=== PATIENT | male | born 1945 | race Hispanic/Latino ===

== ENCOUNTER 2018-04-28 06:04 | Day surgery (SDC) | payer MEDICARE ==
[2018-04-28] MEDS ORDERED: Iohexol 240 (50 ml) ONE (08:02)
[2018-04-28] MEDS ORDERED: cefTRIAXone (Rocephin) 1 gm Inj ONE (08:02)
[2018-04-28] MEDS ORDERED: Propofol 10 mg/ml Inj (20 ML) ONE (08:30)
[2018-04-28] MEDS ORDERED: Etomidate 20 mg/10ml Inj IV ONE (08:41)
[2018-04-28] MEDS ORDERED: ePHEDrine 50 mg/ml Inj ONE (08:52)
[2018-04-28] MEDS ORDERED: Sevoflurane - Inhalation Anesthetic Liq (250 ml) ONE (09:08)
[2018-04-28] MEDS ORDERED: Phenylephrine 10 mg/ml Inj ONE (09:11)
[2018-04-28] MEDS ORDERED: HYDROmorphone 0.5 mg/0.5 ml ISec IVP PRN (09:40)
[2018-04-28] MEDS ORDERED: Lactated Ringer's 1,000 ML IV SCH (09:45)
[2018-04-28] MEDS ORDERED: HYDROmorphone 0.5 mg/0.5 ml ISec ONE ×2 (10:09→10:12)
[2018-04-28] MEDS ORDERED: Oxycodone/Acetaminophen 5/325 mg Tab PO PRN (10:15)
--- NOTE | 2018-04-28 10:19 | OP ---
PROCEDURE DATE: 04/28/2018 PREOPERATIVE DIAGNOSES: Bladder cancer history, prostate cancer history, urethral stricture. POSTOPERATIVE DIAGNOSES: Bladder cancer history, prostate cancer history, urethral stricture. PROCEDURE: A cystoscopy; bilateral retrograde pyelograms; transurethral resection of bladder tumor, large; transurethral resection of bladder neck; insertion of Menon catheter. ATTENDING PHYSICIAN: Fabrice Conklin MD. ANESTHESIA: General. SPECIMENS: Bladder tumor bladder neck chips were sent to pathology as specimen. DRAIN: A 22-Gibraltarian 3-way Menon catheter. COMPLICATIONS: There were none. OPERATIVE FINDINGS: After informed consent was obtained, the patient was taken to the operating room, placed on the operating table. Anesthesia was administered. The patient was then placed in the dorsal lithotomy position and prepped and draped in usual sterile fashion. First, a 21-Gibraltarian cystoscope was placed in the patient's urethra and advanced proximally under direct vision. In the prostatic urethra, there was noted to be a ragged stricture from prior radiation. There was a mild bladder neck contracture noted as well with scar tissue. I was able to manipulate the scope through this and into the bladder. The bladder was then drained and then a full survey inspection of bladder was performed using both 30 and 70-degree lenses. The bladder was heavily trabeculated grade II to III. There was a papillary tumor noted at the dome to 1 o'clock position. There was a prior resection near this site with ragged healing tissue. In total, the area of tumor and prior resection encompassed approximately 5 cm x 5 cm from the 12 o'clock position to approximately 2 o'clock position extending towards the bladder neck region. There were no other active tumors noted. There were multiple healed resection sites. The trigone was elevated given the trabeculation; however, I was able to identify both ureteral orifices. There was no tumor surrounding the orifices. At this point, a 5-Gibraltarian Pollack catheter was introduced through the cystoscope and guided into first the left ureteral orifice. A left retrograde pyelogram was then performed by instilling contrast through the Pollack catheter into the left ureter during real-time fluoroscopy. The left retrograde pyelogram appeared grossly within normal limits. There was no evidence of filling defect or obstruction noted. There was some possible narrowing of the distal ureter. However, there was no filling defect noted inside the ureter itself. At this point, the catheter was guided into the right ureteral orifice and a right retrograde pyelogram was performed. Given the small nature of the right orifice, a sensor wire was used in order to cannulate the orifice. When the catheter was inside the orifice, the wire was then removed. The right ureter appeared of normal caliber, possibly mildly dilated throughout its length. However, there were no filling defects noted. In the renal pelvis, there were multiple rounds mobile filling defects noted. These were not seen on plain fluoroscopy and appeared to be likely uric acid calculi. There was no hydronephrosis and the calyces were sharp. On delayed views, contrast was noted to be exiting from the right kidney down the ureter and into the bladder without any evidence of obstruction. At this point, the cystoscope was removed and a 26-Gibraltarian resectoscope with a visualizing obturator was then passed into the bladder. Using a loop, the active tumor was then resected down into the muscular layer. As the tumor extended into the area of prior resection that area was re-resected as well. After the entire area of tumor was resected, any bleeding points encountered were controlled using electrocautery. After all the visible tumor had been resected, attention was turned towards the bladder neck contracture. There was ragged tissue at the bladder neck extending into the prostatic fossa likely from prior brachytherapy. Bladder neck was then resected using a cutting loop until it was widely opened. Any bleeding points encountered were then controlled using electrocautery. After the bladder neck had been opened, a rollerball electrode was obtained. The bladder was copiously irrigated and the chips as well as tumor fragments were removed and sent to pathology. Rollerball electrode was then used to fulgurate the base of the prior resected tumor and to control any bleeding in the bladder neck region. A final inspection was then made. There was complete hemostasis. All the chips had been removed from the bladder. There was extrusion of a radioactive seed from patient's prior brachytherapy, which was able to also be irrigated out of the bladder and sent with the specimen. At this point, the bladder was then drained. The resectoscope was removed and a 22-Gibraltarian 3-way Menon catheter was passed and placed to continuous bladder irrigation. The patient tolerated the procedure well. He received IV antibiotics prior to start of the procedure. He was returned to the supine position and taken to the recovery room awake and in stable condition. Fabrice Conklin MD [facility] # [id number]
--- NOTE | 2018-04-28 12:33 | RAD ---
Date of service: 04/28/2018 HISTORY: missing tooth COMPARISON: 04/11/2018 FINDINGS: LUNGS: No active pulmonary disease. PLEURA: No significant pleural effusion identified, no pneumothorax apparent. CARDIOVASCULAR: Normal. OSSEOUS STRUCTURES: No significant abnormalities. VISUALIZED UPPER ABDOMEN: Normal. OTHER FINDINGS: None. IMPRESSION: No evidence of a tooth within the airway
--- NOTE | 2018-04-28 14:39 | RAD ---
Date of service: 04/28/2018 PROCEDURE: Retrograde pyelogram HISTORY: R/O OBSTRUCTION COMPARISON: TECHNIQUE: 67.7 sec of fluoro time. Cumulative dose 24.95 mGy. Twenty-two images FINDINGS: Multiple filling defects are seen in the right renal pelvis consistent with stones. IMPRESSION: As above
--- NOTE | 2018-04-28 16:44 | CP.PCM.HP ---
History of Present Illness - History of Present Illness History of Present Illness: History and physical for Dr. Jordon Oliveira HPI: patient is a 72 yr old male with PMH HTN, DM, COPD and bladder cancer who presents s/p cystoscopy and biopsy with Dr. Conklin. Patient c/o mild suprapubic tenderness, mild headache and has grossly blood tinged urine in heredia bag at the time of interview. Patient states that he has had bladder cancer for approximately 14 years and has been followed during that time with Dr. Conklin. He otherwise denies CP, SOB, upper abdominal pain, extremity pain. PMH: PSH: Cystoscopy with biopsy, Prostate seed placement, R inguinal hernia repair Social: denies drugs etoh and tobacco use All: Moxifloxacin Family Hx: Father (VT), mother (CHF pulmonary failure), siblinga healthy Home medications: Metformin/sitagliptin, Albuterol, lisinopril, singulair, omeprazole, amlodipine, silodosin Present on Admission - Present on Admission Any Indicators Present on Admission: Yes Urinary Catheter: Yes Review of Systems - Review of Systems All systems: reviewed and no additional remarkable complaints except (as per HPI) Past Patient History - CARDIAC Hx Pacemaker: No - NEUROLOGICAL Hx Paralysis: No - HEMATOLOGICAL/ONCOLOGICAL Hx Blood Transfusions: No Hx Blood Transfusion Reaction: No - MUSCULOSKELETAL/RHEUMATOLOGICAL Hx Musculoskeletal Disorders: Yes - PSYCHIATRIC Hx Emotional Abuse: No Hx Physical Abuse: No Hx Substance Use: No - SURGICAL HISTORY Hx Surgeries: Yes - ANESTHESIA Hx Anesthesia Reactions: No Hx Malignant Hyperthermia: No Meds Allergies/Adverse Reactions: Allergies Allergy/AdvReac Type Severity Reaction Status Date / Time moxifloxacin HCl Allergy Intermediate STOMACH Verified 06/13/16 10:14 [From Avelox] PAINS Physical Exam - Constitutional Appears: Well, Non-toxic, No Acute Distress - Head Exam Head Exam: ATRAUMATIC, NORMOCEPHALIC - Eye Exam Eye Exam: EOMI - ENT Exam ENT Exam: Mucous Membranes Moist Additional comments: lower anterior front right tooth missing, patient claims it was intact prior to procedure, several other missing teeth, dentition poor, no active bleeding no other oral trauma - Neck Exam Neck exam: Positive for: Full Rom - Respiratory Exam Respiratory Exam: NORMAL BREATHING PATTERN - Cardiovascular Exam Cardiovascular Exam: REGULAR RHYTHM - GI/Abdominal Exam GI & Abdominal Exam: Guarding, Soft, Tenderness. absent: Firm, Rebound, Rigid Additional comments: mild suprapubic tenderness with guarding - Extremities Exam Extremities exam: Positive for: pedal pulses present. Negative for: calf tenderness, pedal edema - Neurological Exam Neurological exam: Alert, CN II-XII Intact, Oriented x3 - Psychiatric Exam Psychiatric exam: Normal Affect, Normal Mood - Skin Skin Exam: Dry, Intact, Normal Color, Warm Results - Vital Signs Recent Vital Signs: Last Vital Signs Temp 97.5 F L 04/28/18 11:35 Pulse 85 04/28/18 11:35 Resp 18 04/28/18 11:35 BP 120/60 04/28/18 11:35 Pulse Ox 98 04/28/18 11:35 - Labs Labs: Laboratory Results - last 24 hr 04/28/18 06:36 POC Glucose (mg/dL) 125 H Assessment & Plan - Assessment and Plan (Free Text) Assessment: 72 yr old male s/p cystoscopy and biopsy with dental injury Plan: Dental pain; - patient indicates that he has an appointment with his dentist next week - no bleeding at site, no other oral trauma - tylenol PRN for pain Suprapubic pain/ hematuria: - 2/2 cystoscopy and biopsy - will monitor UOP for hematuria improvement - tylenol for pain PRN HTN: - restart home lisinopril and amlodipine - will continue to monitor DM: - maintain euglycemia - ISS medium - glucose checks ACHS COPD: - restart home albuterol - restart home singulair - patient unsure of other home medications, to bring list - Pulmonology consulted, recs appreciated GERD: - protonix BID - monitor for GERD symptoms Patient seen and examined with Dr. Jordon Wren, PGY 1 - Date & Time Date: 04/28/18 Time: 15:25
[2018-04-28] MEDS: Insulin Reg-MEDIUM-Coverage SC SCH (22:43)
[2018-04-29] MEDS ORDERED: Albuterol-Ipratrop 3 mg / 0.5 (3 ml) UD IH STA (02:20)
[2018-04-29] MEDS ORDERED: Pantoprazole 40 mg EC Tab PO SCH (06:00)
[2018-04-29] MEDS: Insulin Reg-MEDIUM-Coverage SC SCH ×2 (06:59→12:48)
[2018-04-29 07:37] VITALS: BMI 27.6
[2018-04-29] MEDS ORDERED: Arformoterol 15 mcg/2 ml Inh Sol IH SCH (08:00)
[2018-04-29] MEDS ORDERED: Budesonide 0.5 mg/2 ml Inhal Susp UD IH SCH (08:00)
--- NOTE | 2018-04-29 08:46 | CON ---
DATE: 04/29/2018 PULMONARY CONSULTATION REASON FOR THE PULMONARY CONSULTATION: Chronic obstructive pulmonary disease. REFERRING PHYSICIAN FOR THIS PULMONARY CONSULT: Fabrice Conklin MD. HISTORY OF PRESENT ILLNESS: history is obtained via extensive discussion with the nurse. I have also reviewed the chart at length, and discussed case with the patient at length. The patient is a 72-year-old male, with past medical history significant for bladder cancer, hypertension, chronic obstructive pulmonary disease, diabetes mellitus, who presented to [facility] for cystoscopy and biopsy (with Dr. Conklin). At home, apparently, the patient complained of suprapubic tenderness and had grossly blood-tinged urine. He was thus admitted for the above procedure. There is no history of shortness of breath at rest or dyspnea on exertion. The patient does have a chronic occasional cough with occasional sputum production - unchanged. There is no history of chest pain, coughing up of blood or chest pain - made worse with deep respirations. There is no history of temperatures, chills or infectious exposure. There is no history of night sweats, weight loss or appetite change prior to the above events. No history of leg or calf pains. No history of syncope or diaphoresis. No history of recent travel or trauma. REVIEW OF SYSTEMS: No history of nausea, vomiting or diarrhea. No new neurologic or musculoskeletal complaints. Rest of the review of systems is negative. ALLERGIES: TO AVELOX. SOCIAL HISTORY: Positive for tobacco. Negative for alcohol. FAMILY HISTORY: No inheritable diseases. HOME MEDICATIONS: Include Norvasc, Ambien, Rapaflo, omeprazole, Singulair, Nasonex, lisinopril, Xanax and albuterol HFA. PHYSICAL EXAMINATION: GENERAL: The patient appears comfortable this morning. He is not short of breath at rest. VITAL SIGNS: Temperature is 98.6, pulse is 84, respirations 18, blood pressure 127/80. Oxygen saturation on room air is 96%. HEENT: Normocephalic, atraumatic. No JVD. CARDIOVASCULAR: Positive S1, S2. No S3 gallop. LUNGS: Clear bilaterally. EXTREMITIES: No clubbing, cyanosis or edema. Calves are nontender to palpation. GI: Abdomen is soft, nontender and nondistended. Bowel sounds are positive. SKIN: No acute rash. NEUROLOGIC: Limited at the present time. PERTINENT LABORATORY DATA: Chest x-ray was done yesterday and reviewed. There is no active pulmonary disease noted. IMPRESSION: 1. Bladder cancer. 2. Status post cystoscopy and biopsy. 3. Chronic obstructive pulmonary disease. 4. Hypertension. PLAN: The patient presents to [facility] for cystoscopy and biopsy. Apparently, the patient did have suprapubic tenderness and grossly bloody urine at home. He was thus admitted for the above procedure. Again, I did discuss the case with the night nurse at length. I have also discussed the case with the patient at length. Other than a chronic occasional cough with occasional sputum, the patient offers no new pulmonary symptoms. I have also reviewed the chest x-ray. The chest x-ray shows no acute pulmonary disease. On physical exam, the patient's lungs are clear. In addition, the oxygen saturation on room air is 96%. The patient does have a long history of chronic obstructive pulmonary disease. I will start Brovana and Pulmicort nebulizer treatments this morning. Additional evaluation and treatment will be as per Dr. Conklin (Genitourinary). The patient does state to feeling better - since his hospital admission. Additional pulmonary intervention will be based on the clinical status of the patient. I will discuss the above with the attending physician. Thank you very much for this pulmonary consultation. Brian Gallego MD [facility]
[2018-04-29 10:45] VITALS: RESP 20; O2SAT 94
[2018-04-29 14:36] VITALS: BP 127/80; PULSE 92; TEMP 98.3
--- NOTE | 2018-04-29 15:43 | CP.PCM.PN ---
<LouieCachorrobetsy Hu - Last Filed: 04/29/18 15:38> Subjective - Date & Time of Evaluation Date of Evaluation: 04/29/18 Time of Evaluation: 15:38 - Subjective Subjective: Pt seen and examined at bedside. Pt presented with complaints of blood in his urine. Pt reports no new complaints at this time. Physical Exam: Cardio: RRR, no murmurs Pulm: lungs CTA BL GI: normal bowel sounds, no tenderness to palpation Pt medically cleared from an internal medicine standpoint. Thank you for letting us participate in the care of this pt. We will be signing off at this time. Objective - Vital Signs/Intake and Output Vital Signs (last 24 hours): Temp Pulse Resp BP Pulse Ox 98.3 F 92 H 20 127/80 94 L 04/29/18 14:00 04/29/18 14:00 04/29/18 14:00 04/29/18 14:00 04/29/18 14:00 Intake and Output: 04/29/18 04/29/18 06:59 18:59 Intake Total 360 Output Total 32583 1600 Balance -11851 -1600 - Medications Medications: Current Medications Amlodipine Besylate (Norvasc) 2.5 mg PO DAILY [facility] Last Admin: 04/29/18 10:08 Dose: 2.5 mg Arformoterol Tartrate (Brovana) 15 mcg [facility] [id number] [facility] Last Admin: 04/29/18 14:04 Dose: 15 mcg Budesonide (Pulmicort Respules) 0.5 mg [facility] [id number] [facility] Last Admin: 04/29/18 14:04 Dose: 0.5 mg Insulin Human Regular (Humulin R Med) 0 units SC [facility]; Protocol Last Admin: 04/29/18 12:48 Dose: Not Given Lisinopril (Zestril) 5 mg PO DAILY [facility] Last Admin: 04/29/18 10:07 Dose: 5 mg Montelukast Sodium (Singulair) 10 mg PO HS [facility] Last Admin: 04/28/18 21:15 Dose: 10 mg Oxycodone/Acetaminophen (Percocet 5/325 Mg Tab) 1 tab PO Q6H PRN PRN Reason: Pain, moderate (4-7) Stop: 05/01/18 10:16 Last Admin: 04/29/18 01:45 Dose: 1 tab Pantoprazole Sodium (Protonix Ec Tab) 40 mg PO 0600,1600 [facility] Last Admin: 04/29/18 05:27 Dose: 40 mg <Jordon Oliveira - Last Filed: 04/29/18 19:49> Objective - Vital Signs/Intake and Output Vital Signs (last 24 hours): Temp Pulse Resp BP Pulse Ox 98.3 F 92 H 20 127/80 94 L 04/29/18 14:00 04/29/18 14:00 04/29/18 14:00 04/29/18 14:00 04/29/18 14:00 Intake and Output: 04/29/18 04/30/18 18:59 06:59 Output Total 1600 Balance -1600 Attending/Attestation - Attestation I have personally seen and examined this patient.: Yes I have fully participated in the care of the patient.: Yes I have reviewed all pertinent clinical information, including history, physical exam and plan: Yes Notes (Text): medical clearance for discharge mild hematuria most likely attributed to cystoscopy will need outpt f/u with Urology
--- NOTE | 2018-04-30 08:46 | PN ---
DATE: 04/29/2018 POSTOPERATIVE PROGRESS NOTE SUBJECTIVE: The patient is status post cystoscopy with resection of bladder tumor and bladder neck resection. He was kept on extended recovery as he was not feeling well. He has multiple comorbid conditions. The patient was seen by Pulmonary. His status is stable with regards to his COPD. He is feeling better today with no abdominal pain. He has been afebrile. Temperature of 98.7, pulse 93, BP 124/67, respirations 20. Abdomen was benign. Menon catheter draining clear urine on slow CBI. IMPRESSION AND PLAN: , the patient is currently stable. We will discontinue the continuous bladder irrigation. The patient can be placed to leg bag and discharged home if okay with the hospitalist service. The patient will follow up in my office on morning for Menon catheter removal. Fabrice Conklin MD
== END 2018-04-29 18:06 | disposition home or self-care (01) ==
LOC: SDS 06:04 → 5RSO 16:07 → SDS 04-29 18:06
PROVIDERS: ATTEND Urology
DX: C67.9 Malignant neoplasm of bladder, unspecified (principal); N35.919 Unspecified urethral stricture, male, unspecified site; N32.0 Bladder-neck obstruction; E11.9 Type 2 diabetes mellitus without complications; I10 Essential (primary) hypertension; J44.9 Chronic obstructive pulmonary disease, unspecified; K21.9 Gastro-esophageal reflux disease without esophagitis; Z85.46 Personal history of malignant neoplasm of prostate; Z79.84 Long term (current) use of oral hypoglycemic drugs
CPT/HCPCS: 52240; 71045; 74420; 82948 ×2; 88307; 94640; J0696; J1170; J2001; J2370; J2405 ×2; J2704; J3010; J7120 ×2; Q9966

== ENCOUNTER 2018-07-25 08:58 | Outpatient (CLI) | payer MEDICARE | END 2018-07-25 08:59 | disposition home or self-care (01) | LOC: PAT 08:58 ==

== ENCOUNTER 2018-08-04 06:42 | Day surgery (SDC) | payer MEDICARE ==
[2018-08-04 07:08] VITALS: RESP 20
[2018-08-04] MEDS ORDERED: cefTRIAXone (Rocephin) 1 gm Inj ONE (09:00)
[2018-08-04] MEDS ORDERED: Lactated Ringer's 1,000 ML IV SCH (09:00)
[2018-08-04] MEDS ORDERED: Liquid Adhesive TOP ONE (09:01)
[2018-08-04] MEDS ORDERED: Propofol 10 mg/ml Inj (20 ML) ONE (09:08)
[2018-08-04] MEDS ORDERED: Albuterol HFA 90 mcg/actuation (8 g) ONE (09:13)
[2018-08-04] MEDS ORDERED: Iohexol 240 (50 ml) ONE (09:16)
[2018-08-04] MEDS ORDERED: Oxycodone/Acetaminophen 5/325 mg Tab PO ONE ×2 (11:04→12:31)
[2018-08-04 11:24] VITALS: BMI 27.6
[2018-08-04] MEDS ORDERED: Oxycodone/Acetaminophen 5/325 mg Tab ONE (12:35)
--- NOTE | 2018-08-04 14:13 | OP ---
PROCEDURE DATE: 08/04/2018 PREOPERATIVE DIAGNOSIS: Bladder cancer and prostate cancer history. POSTOPERATIVE DIAGNOSIS: Bladder cancer and prostate cancer history. PROCEDURES: Cystoscopy, bladder biopsy and fulguration, transurethral resection of bladder tumor. ATTENDING SURGEON: Fabrice Conklin MD ANESTHESIA: General. SPECIMENS: Bladder biopsy and bladder tumor chips were sent to pathology. DRAINS: A 20-South Korean 3-way Menon catheter. COMPLICATIONS: None. OPERATIVE FINDINGS: After informed consent was obtained, the patient was taken to the operating room and placed on the operating table and anesthesia was administered. The patient was then placed in a dorsal lithotomy position and prepped and draped in the usual sterile fashion. First, a 21-South Korean cystoscope was placed in the patient's urethra and advanced proximally under direct vision. There was noted to be some tortuosity of the ureter with some narrowing and a stricture in the prostatic urethra which had been previously opened. I was able to manipulate the scope through the narrowed areas and into the bladder. A full survey inspection of the bladder was then performed using both 30 and 70-degree lenses. There was multiple prior resection sites noted. There was some raised erythema on the trigone which appeared suspicious. There were no papillary neobladder tumors noted. However, there was a persistent ragged growth in the bladder neck region, extending from the bladder into the prostatic region and bladder neck from the 12 o'clock to 2 o'clock position. There was fibrinous exudate covering this and possibly some active tumor. The area in question covered about 3 cm x 3 cm. Both ureteral orifices were visualized. There did not appear to be any tumor exiting or surrounding the ureteral orifices. There was grade II trabeculation with open-mouth diverticulum at the dome. At this point, a cold cup biopsy forceps was passed. A biopsy of the trigone was then taken of the erythematous area and sent to pathology. A Bugbee electrode was then passed and the biopsy site was then cauterized. At this point, the cystoscope was removed and a 26-South Korean resectoscope sheath was passed. Using a resecting loop, the prior tumor site was re-resected down into the muscular layer through the bladder neck region. Any bleeding points encountered during the resection were then controlled using electrocautery. The Urovac evacuator was then used to remove the chips which were then sent to pathology as specimen. A final inspection was then made. There was complete hemostasis from the resected area which had been fulgurated using the loop. There was no bleeding noted from the prior biopsy sites. There were no remaining suspicious lesions in the bladder and at this point, the procedure was completed. There were no chips remaining in the bladder and the resectoscope was then withdrawn. A 20-South Korean 3-way Menon catheter was then passed and placed to continuous bladder irrigation. The patient tolerated the procedure well. He was returned to the supine position and taken to the recovery room awake in stable condition. Fabrice Conklin MD
[2018-08-04 16:56] VITALS: BP 128/70; PULSE 85; TEMP 98.4; O2SAT 97
== END 2018-08-04 16:50 | disposition home or self-care (01) ==
LOC: SDS 06:42
PROVIDERS: ATTEND Urology
DX: C67.9 Malignant neoplasm of bladder, unspecified (principal); Z85.46 Personal history of malignant neoplasm of prostate; E11.9 Type 2 diabetes mellitus without complications; I10 Essential (primary) hypertension
CPT/HCPCS: 52235; 82948; 88305; 88307; J0696; J2001; J2405; J2704; J3010; J7120 ×2; Q9966

== ENCOUNTER 2018-10-29 06:38 | Day surgery (SDC) | payer MEDICARE ==
[2018-10-23 15:49] VITALS: BMI 25.4
[2018-10-29 07:04] VITALS: RESP 16
[2018-10-29] MEDS ORDERED: Simethicone 40 mg/0.6 ml Liquid (30 ml) ONE (07:46)
[2018-10-29] MEDS ORDERED: Propofol 10 mg/ml Inj (20 ML) ONE (08:12)
[2018-10-29] MEDS ORDERED: Sodium Chloride 0.9% 1,000 ML IV SCH (09:00)
[2018-10-29 10:12] VITALS: BP 128/90; PULSE 69; TEMP 97.7; O2SAT 95
== END 2018-10-29 10:10 | disposition home or self-care (01) ==
LOC: ENDO 06:38
PROVIDERS: ATTEND Specialist
DX: Z12.11 Encounter for screening for malignant neoplasm of colon (principal); D12.5 Benign neoplasm of sigmoid colon; D12.3 Benign neoplasm of transverse colon; K64.8 Other hemorrhoids; Z86.010 Personal history of colon polyps
CPT/HCPCS: 45385; 82948; 88305; J2001; J2704; J7030; J7040

== ENCOUNTER 2018-11-21 09:44 | Outpatient (CLI) | payer MEDICARE | END 2018-11-21 09:45 | disposition home or self-care (01) | LOC: PAT 09:44 ==

== ENCOUNTER 2018-12-18 10:46 | Day surgery (SDC) | payer MEDICARE ==
[2018-11-21 11:44] VITALS: BMI 25.2
[2018-12-18] MEDS ORDERED: cefTRIAXone (Rocephin) 1 gm Inj ONE (13:06)
[2018-12-18] MEDS ORDERED: Iohexol 240 (50 ml) ONE (13:06)
[2018-12-18] MEDS ORDERED: Midazolam 2 MG/2 ML VIAL ONE (13:10)
[2018-12-18] MEDS ORDERED: Propofol 10 mg/ml Inj (20 ML) ONE (13:10)
[2018-12-18] MEDS ORDERED: cefTRIAXone 1 GM in NS 100 ML BAG IVPB ONE (13:26)
[2018-12-18] MEDS ORDERED: Sodium Chloride 0.9% 1,000 ML IV SCH (14:30)
[2018-12-18 15:28] VITALS: TEMP 97.5
[2018-12-18 16:39] VITALS: PULSE 79; RESP 18; O2SAT 96
[2018-12-18 18:37] VITALS: BP 138/78
--- NOTE | 2018-12-19 02:05 | OP ---
PROCEDURE DATE: 12/18/2018 PREOPERATIVE DIAGNOSES: Prostate cancer, bladder cancer, urethral stricture. POSTOPERATIVE DIAGNOSES: Prostate cancer, bladder cancer, urethral stricture. PROCEDURE: Cystoscopy, a left retrograde pyelogram, biopsies and fulguration of bladder tumor. ATTENDING SURGEON: Fabrice Conklin MD ANESTHESIA: General. SPECIMENS: Bladder tumor fragments were sent to Pathology. DRAINS: An 18-Thai two-way Menon catheter. COMPLICATIONS: There were none. OPERATIVE FINDINGS: After informed consent was obtained, the patient was taken to the operating room, placed on the operating table. Anesthesia was administered. The patient received IV antibiotics. He was placed in a dorsal lithotomy position and prepped and draped in usual sterile fashion. A 22-Thai cystoscope was placed in the patient's urethra and advanced proximally under direct vision until the bladder was entered. A full survey inspection of the bladder was then performed which revealed a markedly distorted bladder with heavy trabeculation. There were multiple prior tumor excision sites noted which were not well healed and ragged. There was a large ragged area on the left wall by the left bladder neck from a prior resection. There were no obvious active papillary tumors noted. Inspection was made with a 30 and 70-degree lens, and it was very difficult to find the trigone, but eventually, I was able to locate the left ureteral orifice. I was able to cannulate the orifice with an open-ended ureteral catheter, and a left retrograde pyelogram was performed. The left retrograde pyelogram appeared grossly within normal limits. There was no filling defect or evidence of obstruction noted. Multiple attempts were made to locate the right ureteral orifice, however, this was unsuccessful. The ureteral catheter was removed and a cold cup biopsy forceps was passed. Biopsies of the ragged area near the left bladder neck were taken and sent to Pathology as specimen. A Bugbee electrode was then passed and the biopsy sites were cauterized along with the entire area of the prior tumor. Some areas of normal mucosa surrounding the area were also cauterized and any patches of erythema noted in the bladder were also cauterized. A final inspection was then made. There was good hemostasis noted. Exam of the prostatic urethra revealed ragged strictured prostate. The patient is status post brachytherapy. There were a few seeds noted extruding from the prostatic urethra and these were able to be irrigated out of the bladder. The scope was then removed and an 18-Thai two-way Menon catheter was passed and placed to straight bladder drainage. The patient tolerated the procedure well. He was returned to the supine position and taken to the recovery room awake, in stable condition. Fabrice Coknlin MD
--- NOTE | 2018-12-22 15:36 | RAD ---
Date of service: 12/18/2018 PROCEDURE: Fluoroscopy up to 1 hr HISTORY: LEFT URETER RETROGRADE CYSTOSCOPY COMPARISON: TECHNIQUE: Fluoroscopy was provided in the operating room. Six images were submitted FINDINGS: The left renal collecting system and ureter are unremarkable. IMPRESSION: As above
== END 2018-12-18 18:15 | disposition home or self-care (01) ==
LOC: SDS 10:46
PROVIDERS: ATTEND Urology
DX: C67.9 Malignant neoplasm of bladder, unspecified (principal); C61 Malignant neoplasm of prostate; N35.919 Unspecified urethral stricture, male, unspecified site
CPT/HCPCS: 52234; 88305; C1758; C1769; J0696; J2250; J2704; J3010; J7030; J7120; Q9966